=== PATIENT | male | born 1985 ===

== ENCOUNTER 2017-09-02 06:47 | Emergency (ER) | payer SELFPAY ==
[2017-09-02 06:47] VITALS: BMI 18.8
[2017-09-02 07:03] VITALS: RESP 20
[2017-09-02] MEDS ORDERED: Naproxen 550 mg Tab PO STA (07:26)
[2017-09-02] MEDS ORDERED: Naproxen 550 mg Tab PO ONE (07:31)
[2017-09-02] MEDS ORDERED: Sodium Chloride 0.9% 1,000 ML IV ONE (07:31)
[2017-09-02] MEDS ORDERED: Sodium Chloride 0.9% 1,000 ML ONE (07:36)
--- NOTE | 2017-09-02 08:27 | C.PDOC ---
History Of Present Illness 32-year-old male, presents to the emergency department with complaints of nausea , that is associated with non-bloody/non-bilious vomiting, body aches and generalized headaches since yesterday. Patient reports his son had similar symptoms recently. Denies fever, diarrhea, cough, sore throat, runny nose, or any other associated symptoms. No other complaints at this time. Time Seen by Provider: 09/02/17 07:08 Chief Complaint (Nursing): Flu-like Symptoms History Per: Patient History/Exam Limitations: no limitations Onset/Duration Of Symptoms: Hrs Current Symptoms Are (Timing): Still Present Past Medical History Reviewed: Historical Data, Nursing Documentation, Vital Signs Vital Signs: Last Vital Signs Temp 98.3 F 09/02/17 08:33 Pulse 70 09/02/17 08:33 Resp 20 09/02/17 08:33 BP 114/67 09/02/17 08:33 Pulse Ox 96 09/02/17 10:06 Family History: States: No Known Family Hx - Social History Hx Tobacco Use: No Hx Alcohol Use: Yes Hx Substance Use: No - Immunization History Hx Tetanus Toxoid Vaccination: (unk) Hx Influenza Vaccination: No Hx Pneumococcal Vaccination: No Review Of Systems Except As Marked, All Systems Reviewed And Found Negative. Constitutional: Positive for: Malaise. Negative for: Fever, Chills ENT: Negative for: Ear Pain, Throat Pain Gastrointestinal: Positive for: Nausea, Vomiting. Negative for: Abdominal Pain , Diarrhea Genitourinary: Negative for: Dysuria, Rash Musculoskeletal: Negative for: Back Pain Skin: Negative for: Rash Neurological: Positive for: Headache. Negative for: Weakness, Numbness, Dizziness Physical Exam - Physical Exam Appears: Non-toxic, No Acute Distress, Other (Fatigued) Skin: Normal Color, Warm, Dry, No Rash Head: Normacephalic Eye(s): bilateral: Normal Inspection, PERRL Nose: Normal Oral Mucosa: Moist Lips: Normal Appearing Neck: Normal ROM Chest: Symmetrical Cardiovascular: Rhythm Regular, No Murmur Respiratory: Normal Breath Sounds, No Accessory Muscle Use Gastrointestinal/Abdominal: Soft, No Tenderness Extremity: Normal ROM Neurological/Psych: Oriented x3, Normal Speech ED Course And Treatment O2 Sat by Pulse Oximetry: 96 (RA) Pulse Ox Interpretation: Normal Progress Note: Patient treated with IVFs, Toradol, Zofran, Naproxen. Patient will be PO challenged and reassessed. On re-evaluation. Patient is awake and alert, does not appear to be in any acute distress. He is tolerating PO intake. He will be discharged for outpatient f/u with clinic. All questions answered. Disposition Counseled Patient/Family Regarding: Diagnosis, Need For Followup, Rx Given - Disposition Referrals: [facility] [Outside] Disposition: HOME/ ROUTINE Disposition Time: 08:25 Condition: STABLE Additional Instructions: FOLLOW UP WITH YOUR DOCTOR/CLINIC IN 1-2 DAYS USE MEDICATIONS NEEDED DRINK PLENTY OF FLUIDS RETURN TO ER IF SYMPTOMS WORSEN Prescriptions: Dicyclomine [Bentyl] 20 mg PO Q6 PRN #12 tab PRN Reason: ABDOMINAL CRAMPING Naproxen 375 mg PO BID PRN #20 tablet PRN Reason: pain Ondansetron [Zofran Odt] 4 mg PO Q8 PRN #15 odt PRN Reason: Nausea/Vomiting Instructions: Viral Syndrome (DC) Forms: [facility] (Khmer), Work Excuse Print Language: JAMAICAN - POA Present On Arrival: None - Clinical Impression Clinical Impression: Nausea, Vomiting - Scribe Statement The provider has reviewed the documentation as recorded by the Scribe (Vineet Bustillos) All medical record entries made by the Scribe were at my direction and personally dictated by me. I have reviewed the chart and agree that the record accurately reflects my personal performance of the history, physical exam, medical decision making, and the department course for this patient. I have also personally directed, reviewed, and agree with the discharge instructions and disposition.
[2017-09-02 08:34] VITALS: BP 114/67; PULSE 70; TEMP 98.3
[2017-09-02 10:02] VITALS: O2SAT 96
== END 2017-09-02 08:38 | disposition home or self-care (01) ==
LOC: C.ER 06:47
DX: R11.2 Nausea with vomiting, unspecified (principal)
CPT/HCPCS: 96361; 96374; 96375; 99285; J1885; J2405; J7040

== ENCOUNTER 2018-05-27 08:57 | Emergency (ER) | payer MEDICAID ==
[2018-05-27 08:57] VITALS: BMI 18.8
[2018-05-27 09:16] VITALS: RESP 18
[2018-05-27] MEDS ORDERED: Sodium Chloride 0.9% 1,000 ML IV ONE ×2 (09:59→10:01)
--- NOTE | 2018-05-27 10:16 | C.PDOC ---
History Of Present Illness 33 year old male presents to ED for evaluation of nausea and vomiting since yesterday. Notes he is unable to tolerate water today. He complains of associated body aches. Denies sick contact, diarrhea, abdominal pain, back pain, urinary symptoms, fever, chills, or any other associated symptoms. Time Seen by Provider: 05/27/18 09:30 Chief Complaint (Nursing): GI Problem History Per: Patient History/Exam Limitations: no limitations Onset/Duration Of Symptoms: Days Current Symptoms Are (Timing): Still Present Associated Symptoms: Nausea, Vomiting. denies: Diarrhea, Back Pain, Chest Pain, Constipation, Urinary Symptoms Recent travel outside of the [place]: No Additional History Per: Patient Past Medical History Reviewed: Historical Data, Nursing Documentation, Vital Signs Vital Signs: Last Vital Signs Temp 98.2 F 05/27/18 09:14 Pulse 77 05/27/18 09:14 Resp 18 05/27/18 09:14 BP 111/73 05/27/18 09:14 Pulse Ox 96 05/27/18 09:14 Family History: States: Unknown Family Hx - Social History Hx Tobacco Use: No Hx Alcohol Use: Yes Hx Substance Use: No - Immunization History Hx Tetanus Toxoid Vaccination: (unk) Hx Influenza Vaccination: No Hx Pneumococcal Vaccination: No Review Of Systems Constitutional: Positive for: Other (body aches). Negative for: Fever, Chills Gastrointestinal: Positive for: Nausea, Vomiting. Negative for: Abdominal Pain, Diarrhea, Constipation, Hematemesis Genitourinary: Negative for: Dysuria, Frequency, Hematuria Musculoskeletal: Negative for: Back Pain Physical Exam - Physical Exam Appears: Non-toxic, No Acute Distress Skin: Normal Color, Warm, Dry Head: Atraumatic, Normacephalic Eye(s): bilateral: Normal Inspection Oral Mucosa: Dry Neck: Normal ROM, Supple Chest: Symmetrical Cardiovascular: Rhythm Regular, No Murmur Respiratory: Normal Breath Sounds, No Rales, No Rhonchi, No Wheezing Gastrointestinal/Abdominal: Bowel Sounds, Soft, No Tenderness, No Guarding, No Rebound Back: No CVA Tenderness Extremity: Normal ROM Neurological/Psych: Oriented x3, Normal Speech, Normal Cognition ED Course And Treatment - Laboratory Results Result Diagrams: 05/27/18 10:16 05/27/18 10:16 O2 Sat by Pulse Oximetry: 96 (RA) Pulse Ox Interpretation: Normal Medical Decision Making Medical Decision Making: Plan: Blood work Urinalysis Zofran Toradol Pepcid IV fluids 1222 pt feeling better. tolerates po fluids. will d/c home. Disposition Counseled Patient/Family Regarding: Studies Performed, Diagnosis, Need For Followup, Rx Given - Disposition Referrals: [facility] [Outside] Disposition: HOME/ ROUTINE Disposition Time: 12:24 Condition: IMPROVED Additional Instructions: Please start drinking clear fluids and gradually move to toast, crackers as stomach tolerates, then other foods. Take pepcid once a day for next week or so and take ondansetron for nausea up to three time a day if needed. Prescriptions: Famotidine [Pepcid] 20 mg PO DAILY #14 tab Ondansetron ODT [Zofran ODT] 4 mg PO TID #12 odt Instructions: Nausea and Vomiting, Adult (DC), Viral Syndrome (DC) Forms: [facility] (Spanish), General Discharge Instructions - Clinical Impression Clinical Impression: Viral syndrome, Vomiting - PA / CRISIS INTERVENTION SPECIALIST / Resident Statement MD/DO has reviewed & agrees with the documentation as recorded. - Scribe Statement The provider has reviewed the documentation as recorded by the Scribe KP All medical record entries made by the Scribe were at my direction and personally dictated by me. I have reviewed the chart and agree that the record accurately reflects my personal performance of the history, physical exam, m edical decision making, and the department course for this patient. I have also personally directed, reviewed, and agree with the discharge instructions and disposition.
[2018-05-27 10:18] LABS: BASO % 0.5 % (0.0-2.0); EOS % 0.3 % (0.0-4.0); HEMOGLOBIN 15.6 g/dL (12.0-18.0); LYMPH # 1.1 K/uL (1.0-4.3); LYMPH % 14.8 % (20.0-40.0); MEAN CELL VOLUME 90.5 fL (80.0-94.0); MEAN CORPUSCULAR HEMOGLOBIN 31.3 pg (27.0-31.0); MEAN CORPUSCULAR HGB CONC 34.5 g/dL (33.0-37.0); MEAN PLATELET VOLUME 7.9 fL (7.2-11.7); MONO # 0.4 K/uL (0.0-0.8); NEUT # 5.7 K/uL (1.8-7.0); NEUT % 78.4 % (50.0-75.0); RED CELL DISTRIBUTION WIDTH 13.1 % (11.5-14.5); WHITE BLOOD COUNT 7.3 K/uL (4.8-10.8)
[2018-05-27] MEDS ORDERED: Sodium Chloride 0.9% 1,000 ML ONE (10:20)
[2018-05-27 10:40] LABS: ALB/GLOB RATIO 1.5 (1.0-2.1); ALBUMIN 4.9 g/dL (3.5-5.0); ALT/SGPT 24 U/L (21-72); AST/SGOT 26 U/L (17-59); BLOOD UREA NITROGEN 12 mg/dL (9-20); CALCIUM 9.6 mg/dl (8.6-10.4); GFR NON-AFRICAN AMERICAN > 60; LIPASE 29 U/L (23-300)
[2018-05-27 10:50] LABS: URINE AMORPHOUS SEDIMENT RARE /ul (<OCC); URINE BACTERIA RARE (<OCC); URINE BILIRUBIN NEGATIVE (NEGATIVE); URINE BLOOD NEGATIVE (NEGATIVE); URINE CLARITY Hazy (Clear); URINE COLOR Yellow (YELLOW); URINE GLUCOSE (UA) NORMAL (Normal); URINE LEUKOCYTE ESTERASE NEG Leu/uL (Negative); URINE PROTEIN 1+ mg/dL (NEGATIVE)
[2018-05-27 12:55] VITALS: BP 118/79; PULSE 62; TEMP 98.6
[2018-05-27 18:26] VITALS: O2SAT 96
== END 2018-05-27 12:55 | disposition home or self-care (01) ==
LOC: C.ER 08:57
DX: B34.9 Viral infection, unspecified (principal); R11.2 Nausea with vomiting, unspecified
CPT/HCPCS: 80053; 81001; 83690; 85025; 96361; 96374; 96375; 99285; J1885; J2405; J7030